=== PATIENT | female | born 2000 ===

== ENCOUNTER 2023-02-17 11:50 | Inpatient (IN) | payer MEDICARE, MEDICAID, SELFPAY ==
[2023-02-17 12:43] VITALS: BMI 37.5
[2023-02-17 12:44] VITALS: BP 142/57; PULSE 73; RESP 16; TEMP 36.2; O2SAT 95
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
[2023-02-17 13:54] LABS: Estimated Average Glucose 100 mg/dL; Hemoglobin A1c % 5.1 % (<6.0)
[2023-02-17 14:09] LABS: Alanine Aminotransferase 42 U/L (0-31); Alkaline Phosphatase 150 U/L (39-117); Anion Gap 13 (12-20); Aspartate Amino Transferase 34 U/L (5-31); Bilirubin Total 0.3 mg/dL (0.0-1.0); Blood Urea Nitrogen 9 mg/dL (9-16); Calcium 9.6 mg/dL (8.4-10.2); Carbon Dioxide 19 mmol/L (22-29); Chloride 113 mmol/L (96-108); Cholesterol 186 mg/dL (<200); Creatinine Clr Calc Pharmacy 113.6; Estimated Glomerular Filt Rate > 60; Glucose Fasting 105 mg/dL (60-99); HDL Cholesterol 39 mg/dL (>40); LDL Cholesterol Calculated 136 mg/dL (<100); Magnesium 2.3 mg/dL (1.6-2.6); Sodium 141 mmol/L (135-145); Triglycerides 57 mg/dL (<150)
[2023-02-17 14:27] LABS: Thyroid Stimulating Hormone 0.65 uIU/mL (0.32-4.0)
[2023-02-17 14:41] LABS: Folate 4.9 ng/mL (> or = 4.0); Vitamin B12 469 pg/mL (200-900)
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
[2023-02-17 18:20] VITALS: BP 109/69; PULSE 81
[2023-02-17] MEDS: Propranolol HCL 20 MG TABLET PO ×2 (18:28→21:42)
[2023-02-17] MEDS: OLANZapine 7.5 MG TABLET 15 MG PO (21:39)
[2023-02-17] MEDS: Primidone 50 MG TABLET 100 MG PO (21:40)
[2023-02-17] MEDS: OXcarbazepine 300 MG TABLET 600 MG PO (21:40)
[2023-02-17] MEDS: Topiramate 100 MG TABLET 200 MG PO (21:41)
[2023-02-17] MEDS: Prazosin HCL 1 MG CAPSULE PO (21:41)
[2023-02-17] MEDS: Melatonin 3 MG TABLET PO (21:42)
[2023-02-17] MEDS: Topiramate 25 MG TABLET 50 MG PO (21:42)
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
[2023-02-18 06:00] VITALS: BP 99/52; PULSE 64; TEMP 36.2; O2SAT 96
[2023-02-18 09:45] VITALS: BP 120/85; PULSE 85; RESP 18; O2SAT 96
[2023-02-18] MEDS: Topiramate 25 MG TABLET 50 MG PO ×2 (10:00→21:15)
[2023-02-18] MEDS: FLUoxetine HCl 20 MG CAPSULE 40 MG PO (10:01)
[2023-02-18] MEDS: Primidone 50 MG TABLET PO (10:01)
[2023-02-18] MEDS: Omeprazole 20 MG CAPSULE.DR PO (10:02)
[2023-02-18] MEDS: Propranolol HCL 20 MG TABLET PO ×3 (10:02→21:17)
[2023-02-18] MEDS: Topiramate 100 MG TABLET 200 MG PO ×2 (10:03→21:16)
[2023-02-18] MEDS: OXcarbazepine 300 MG TABLET 600 MG PO ×2 (10:03→21:18)
[2023-02-18] MEDS: Fluticasone/Vilanterol 100/25 BLST.W.DEV 1 PUFF INHALE (10:05)
[2023-02-18 14:45] VITALS: BP 113/53; PULSE 68; RESP 20; O2SAT 100
--- NOTE | 2023-02-18 17:16 | P.PNPSI_ITS ---
Subjective Subjective Date of Service: 02/18/23 Reason For Visit: BPD, Schizoaffective Disorder Interim History: Patient seen. Was isolated and sleeping most of the shift this morning. She reportde she continued to feel depressed. She has been compliant with medications. Not attending groups. She denies SI/HI/AVH. Monosyllabic answers. Difficult to engage. Review of Systems Constitutional: Reports as per HPI Eyes: Reports as per HPI Reports as per HPI Cardiovascular: Reports as per HPI Respiratory: Reports as per HPI Gastrointestinal: Reports as per HPI Musculoskeletal: Reports as per HPI Skin/Breast: Reports as per HPI Reports as per HPI Psychiatric: Reports as per HPI Endocrine: Reports as per HPI Hematologic/Lymphatic: Reports as per HPI Allergic/Immunologic: Reports as per HPI Mental Status Exam Mental Status Exam Narrative: Pt is alert and oriented; behavior is cooperative, calm and guarded; dressed in casual attire with unkempt hair; mood is described as depressed ; eye contact appropriate; Speech is normal rate, volume and prosody and not pressured; thought process is organized; Thought content is on tx; otherwise pertinent to relevant topics and without any delusional content, paranoid ideations or grandiosity; denies SI/HI. There is no evidence of perceptual disturbance.Patients insight and judgment are poor. Diagnostics Vital Signs (24Hr): Vital Signs - 24 hr 02/17/23 18:20 02/18/23 06:00 02/18/23 09:45 Temperature 97.1 F Pulse Rate 81 64 85 Respiratory Rate 18 Blood Pressure 109/69 99/52 L 120/85 Pulse Oximetry 96 96 Oxygen Delivery Method Room Air Room Air 02/18/23 14:45 Temperature Pulse Rate 68 Respiratory Rate 20 Blood Pressure 113/53 L Pulse Oximetry 100 Oxygen Delivery Method Room Air BMI result Body Mass Index 37.5 Labs 02/17/23 13:21 Labs: Laboratory Results - last 48 hr 02/17/23 13:21 Sodium 141 Potassium 4.0 Chloride 113 H Carbon Dioxide 19 L Anion Gap 13 BUN 9 Creatinine 0.81 Estim Creat Clear Calc 113.6 Estimated GFR > 60 Fasting Glucose 105 H Estimat Average Glucose 100 Hemoglobin A1c % 5.1 Calcium 9.6 Magnesium 2.3 Total Bilirubin 0.3 AST 34 H ALT 42 H Alkaline Phosphatase 150 H Total Protein 8.0 Albumin 4.0 Triglycerides 57 Cholesterol 186 LDL Cholesterol, Calc 136 H HDL Cholesterol 39 L Vitamin B12 469 Folate 4.9 TSH 0.65 Free T4 0.70 L Medications Medications Current Medications Acetaminophen (Acetaminophen 325 Mg Tablet) 650 mg PO Q6H PRN PRN Reason: Headache/Pain Mild Scale (1-3) Al Hydroxide/Mg Hydroxide (Magnesium Hydrox/Alum Hydrox 30 Ml Oral.Susp) 30 ml PO Q6H PRN PRN Reason: Heartburn/Nausea Epinephrine (Epinephrine 1 Mg/Ml Vial) 0.3 mg SUBCUT ONCE PRN PRN Reason: allergic reaction Fluoxetine HCl (Fluoxetine Hcl 20 Mg Capsule) 40 mg PO DAILY [facility] Last Admin: 02/18/23 10:01 Dose: 40 mg Fluticasone/Vilanterol (Fluticasone/Vilanterol 100/25 Blst.W.Dev) 1 puff INHALE RDAILY [facility] Last Admin: 02/18/23 10:05 Dose: 1 puff Hydroxyzine HCl (Hydroxyzine Hcl 25 Mg Tablet) 25 mg PO Q6H PRN PRN Reason: Anxiety Magnesium Hydroxide (Milk Of Magnesia 30 Ml Oral.Susp) 30 ml PO DAILY PRN PRN Reason: Constipation Melatonin (Melatonin 3 Mg Tablet) 3 mg PO BEDTIME [facility] Last Admin: 02/17/23 21:42 Dose: 3 mg Olanzapine (Olanzapine 7.5 Mg Tablet) 15 mg PO BEDTIME [facility] Last Admin: 02/17/23 21:39 Dose: 15 mg Omeprazole (Omeprazole 20 Mg Capsule.Dr) 20 mg PO DAILY [facility] Last Admin: 02/18/23 10:02 Dose: 20 mg Oxcarbazepine (Oxcarbazepine 300 Mg Tablet) 600 mg PO BID [facility] Last Admin: 02/18/23 10:03 Dose: 600 mg Prazosin HCl (Prazosin Hcl 1 Mg Capsule) 1 mg PO BEDTIME [facility]; Protocol Last Admin: 02/17/23 21:41 Dose: 1 mg Primidone (Primidone 50 Mg Tablet) 50 mg PO DAILY [facility] Last Admin: 02/18/23 10:01 Dose: 50 mg Primidone (Primidone 50 Mg Tablet) 100 mg PO BEDTIME [facility] Last Admin: 02/17/23 21:40 Dose: 100 mg Propranolol HCl (Propranolol Hcl 20 Mg Tablet) 20 mg PO TID [facility]; Protocol Last Admin: 02/18/23 14:56 Dose: 20 mg Topiramate (Topiramate 100 Mg Tablet) 200 mg PO BID [facility] Last Admin: 02/18/23 10:03 Dose: 200 mg Topiramate (Topiramate 25 Mg Tablet) 50 mg PO BID [facility] Last Admin: 02/18/23 10:00 Dose: 50 mg Allergies Allergies Allergy/AdvReac Type Severity Reaction Status Date / Time tiagabine Allergy Severe Seizure Verified 02/17/23 15:30 fish Allergy Severe Hives and Uncoded 02/17/23 15:30 Throat closure Assessment & Plan Assessment & Plan (1) Schizoaffective disorder: Status: Acute Code(s): F25.9 - Schizoaffective disorder, unspecified (2) PTSD (post-traumatic stress disorder): Status: Acute Code(s): F43.10 - Post-traumatic stress disorder, unspecified (3) Borderline personality disorder: Status: Acute Code(s): F60.3 - Borderline personality disorder Plan Patient is a 22 year old female with hx of Schizoaffective d/o, PTSD, Borderline personality d/o, who presented to ER with her residential staff for concerns of suicidal ideation d/t increased depressed secondary to the holiday season and missing her mother who had . Plan: CV 15 minute safety checks Obtain collateral Continue home medications:verified with [facility] in [place], [place]. Discharge planning 02/18: Continue current treatment plan. Reason for continued inpatient stay Substantial Risk for: harm to self, inability to function and rapid decompensation Time Spent With Patient Time: Total time managing care of this patient today ____ minutes.
[2023-02-18] MEDS: OLANZapine 7.5 MG TABLET 15 MG PO (21:16)
[2023-02-18] MEDS: Prazosin HCL 1 MG CAPSULE PO (21:17)
[2023-02-18] MEDS: Primidone 50 MG TABLET 100 MG PO (21:17)
[2023-02-18] MEDS: Melatonin 3 MG TABLET PO (21:18)
[2023-02-18 21:19] VITALS: BP 124/56; PULSE 84; RESP 16; TEMP 36.8; O2SAT 95
[2023-02-19 06:00] VITALS: BP 113/51; PULSE 72; RESP 18; TEMP 36.2; O2SAT 97
[2023-02-19 07:45] VITALS: BP 113/51; PULSE 72; RESP 18; TEMP 36.2; O2SAT 97
[2023-02-19] MEDS: Omeprazole 20 MG CAPSULE.DR PO (07:55)
[2023-02-19] MEDS: Fluticasone/Vilanterol 100/25 BLST.W.DEV 1 PUFF INHALE (07:55)
[2023-02-19] MEDS: FLUoxetine HCl 20 MG CAPSULE 40 MG PO (07:55)
[2023-02-19] MEDS: Primidone 50 MG TABLET PO (07:56)
[2023-02-19] MEDS: Topiramate 100 MG TABLET 200 MG PO ×2 (07:56→22:03)
[2023-02-19] MEDS: Topiramate 25 MG TABLET 50 MG PO ×2 (07:56→22:05)
[2023-02-19] MEDS: Propranolol HCL 20 MG TABLET PO ×2 (07:56→22:04)
[2023-02-19] MEDS: OXcarbazepine 300 MG TABLET 600 MG PO ×2 (07:56→22:04)
[2023-02-19 14:39] VITALS: BP 115/56; PULSE 89
--- NOTE | 2023-02-19 18:48 | PC.NURSE ---
Pt asked if she could smoke and became upset when she was told she couldn't smoke while she's at the hospital. RN offered nicotine gum, pt did not respond. Orders placed for nicotine patch to be given tomorrow and PRN nicotine gum.
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
[2023-02-19 20:00] VITALS: BP 120/78; PULSE 87; RESP 18; TEMP 36.3; O2SAT 99
[2023-02-19] MEDS: Nicotine Polacrilex 2 MG GUM BUCCAL (20:15)
[2023-02-19] MEDS: OLANZapine 7.5 MG TABLET 15 MG PO (22:03)
[2023-02-19] MEDS: Primidone 50 MG TABLET 100 MG PO (22:03)
[2023-02-19] MEDS: Melatonin 3 MG TABLET PO (22:04)
[2023-02-19] MEDS: Prazosin HCL 1 MG CAPSULE PO (22:08)
--- NOTE | 2023-02-20 09:46 | P.PNPSI_ITS ---
Subjective Subjective Date of Service: 02/20/23 Reason For Visit: BPD, Schizoaffective Disorder Subjective Notes: Conditional Voluntary Interim History: Reviewed with . Patient reports feeling good today; pt stated, I'm no longer feeling depressed or suicidal. I want to go back to my custodial . Patient could not elaborate further on why she was no longer depressed or suicidal. denies HI/VH/AH. Medication Compliance: Yes Side effects from medications: No Attending Groups: No Review of Systems Constitutional: Reports as per HPI Eyes: Reports as per HPI Reports as per HPI Cardiovascular: Reports as per HPI Respiratory: Reports as per HPI Gastrointestinal: Reports as per HPI Genitourinary: Reports as per HPI Musculoskeletal: Reports as per HPI Skin/Breast: Reports as per HPI Reports as per HPI Psychiatric: Reports as per HPI Endocrine: Reports as per HPI Hematologic/Lymphatic: Reports as per HPI Allergic/Immunologic: Reports as per HPI Mental Status Exam Mental Status Exam Narrative: Pt is alert and oriented; behavior is cooperative, calm, guarded; dressed in casual attire; mood is described as good ; eye contact appropriate; Speech is normal rate, volume and prosody and not pressured; thought process is organized; Thought content is on discharge; otherwise pertinent to relevant topics and without any delusional content, paranoid ideations or grandiosity; denies SI/HI/AH/VH. Diagnostics Vital Signs (24Hr): Vital Signs - 24 hr 02/19/23 14:39 02/19/23 20:00 Temperature 97.3 F Pulse Rate 89 87 Respiratory Rate 18 Blood Pressure 115/56 L 120/78 Pulse Oximetry 99 Oxygen Delivery Method Room Air BMI result Body Mass Index 37.5 Labs 02/17/23 13:21 Medications Medications Current Medications Acetaminophen (Acetaminophen 325 Mg Tablet) 650 mg PO Q6H PRN PRN Reason: Headache/Pain Mild Scale (1-3) Al Hydroxide/Mg Hydroxide (Magnesium Hydrox/Alum Hydrox 30 Ml Oral.Susp) 30 ml PO Q6H PRN PRN Reason: Heartburn/Nausea Epinephrine (Epinephrine 1 Mg/Ml Vial) 0.3 mg SUBCUT ONCE PRN PRN Reason: allergic reaction Fluoxetine HCl (Fluoxetine Hcl 20 Mg Capsule) 40 mg PO DAILY [facility] Last Admin: 02/19/23 07:55 Dose: 40 mg Fluticasone/Vilanterol (Fluticasone/Vilanterol 100/25 Blst.W.Dev) 1 puff INHALE RDAILY [facility] Last Admin: 02/19/23 07:55 Dose: 1 puff Hydroxyzine HCl (Hydroxyzine Hcl 25 Mg Tablet) 25 mg PO Q6H PRN PRN Reason: Anxiety Magnesium Hydroxide (Milk Of Magnesia 30 Ml Oral.Susp) 30 ml PO DAILY PRN PRN Reason: Constipation Melatonin (Melatonin 3 Mg Tablet) 3 mg PO BEDTIME [facility] Last Admin: 02/19/23 22:04 Dose: 3 mg Nicotine (Nicotine 21 Mg Patch.Td24) 21 mg TRANSDERMA DAILY [facility] Nicotine Polacrilex (Nicotine Polacrilex 2 Mg Gum) 2 mg BUCCAL Q2H PRN PRN Reason: Nicotine Cravings Last Admin: 02/19/23 20:15 Dose: 2 mg Olanzapine (Olanzapine 7.5 Mg Tablet) 15 mg PO BEDTIME [facility] Last Admin: 02/19/23 22:03 Dose: 15 mg Omeprazole (Omeprazole 20 Mg Capsule.Dr) 20 mg PO DAILY [facility] Last Admin: 02/19/23 07:55 Dose: 20 mg Oxcarbazepine (Oxcarbazepine 300 Mg Tablet) 600 mg PO BID [facility] Last Admin: 02/19/23 22:04 Dose: 600 mg Prazosin HCl (Prazosin Hcl 1 Mg Capsule) 1 mg PO BEDTIME [facility]; Protocol Last Admin: 02/19/23 22:08 Dose: 1 mg Primidone (Primidone 50 Mg Tablet) 50 mg PO DAILY [facility] Last Admin: 02/19/23 07:56 Dose: 50 mg Primidone (Primidone 50 Mg Tablet) 100 mg PO BEDTIME [facility] Last Admin: 02/19/23 22:03 Dose: 100 mg Propranolol HCl (Propranolol Hcl 20 Mg Tablet) 20 mg PO TID [facility]; Protocol Last Admin: 02/19/23 22:04 Dose: 20 mg Topiramate (Topiramate 100 Mg Tablet) 200 mg PO BID [facility] Last Admin: 02/19/23 22:03 Dose: 200 mg Topiramate (Topiramate 25 Mg Tablet) 50 mg PO BID [facility] Last Admin: 02/19/23 22:05 Dose: 50 mg Allergies Allergies Allergy/AdvReac Type Severity Reaction Status Date / Time tiagabine Allergy Severe Seizure Verified 02/17/23 15:30 fish Allergy Severe Hives and Uncoded 02/17/23 15:30 Throat closure Assessment & Plan Assessment & Plan (1) Schizoaffective disorder: Status: Acute Code(s): F25.9 - Schizoaffective disorder, unspecified (2) PTSD (post-traumatic stress disorder): Status: Acute Code(s): F43.10 - Post-traumatic stress disorder, unspecified (3) Borderline personality disorder: Status: Acute Code(s): F60.3 - Borderline personality disorder Plan Patient is a 22 year old female with hx of Schizoaffective d/o, PTSD, Borderline personality d/o, who presented to ER with her residential staff for concerns of suicidal ideation d/t increased depressed secondary to the holiday season and missing her mother who had . Plan: CV 15 minute safety checks Obtain collateral Continue home medications:verified with [facility] in [place], [place]. Discharge planning 02/18: Continue current treatment plan. 02/19: Continue current management and treatment plan. 02/20: Patient reports feeling good today; pt stated, I'm no longer feeling depressed or suicidal. I want to go back to my custodial . Patient could not elaborate further on why she was no longer depressed or suicidal. denies HI/VH/AH. Continue current tx plan. Patient educated on: diagnosis, medication risk/benefits and therapeutic strategies Informed Consent: understands Reason for continued inpatient stay Substantial Risk for: med/psych decompensation Time Spent With Patient Time: Total time managing care of this patient today _20___ minutes.
[2023-02-20 11:32] VITALS: BP 117/73; PULSE 88; RESP 18; TEMP 36.7; O2SAT 97
[2023-02-20] MEDS: Topiramate 25 MG TABLET 50 MG PO ×2 (11:34→21:34)
[2023-02-20] MEDS: Propranolol HCL 20 MG TABLET PO ×3 (11:34→21:36)
[2023-02-20] MEDS: Fluticasone/Vilanterol 100/25 BLST.W.DEV 1 PUFF INHALE (11:34)
[2023-02-20] MEDS: Topiramate 100 MG TABLET 200 MG PO ×2 (11:34→21:35)
[2023-02-20] MEDS: Omeprazole 20 MG CAPSULE.DR PO (11:34)
[2023-02-20] MEDS: OXcarbazepine 300 MG TABLET 600 MG PO ×2 (11:34→21:36)
[2023-02-20] MEDS: Primidone 50 MG TABLET PO (11:35)
[2023-02-20] MEDS: FLUoxetine HCl 20 MG CAPSULE 40 MG PO (11:35)
[2023-02-20 17:10] VITALS: BP 121/61; PULSE 69
[2023-02-20] MEDS: Nicotine Polacrilex 2 MG GUM BUCCAL (17:14)
[2023-02-20] MEDS: Melatonin 3 MG TABLET PO (21:34)
[2023-02-20] MEDS: OLANZapine 7.5 MG TABLET 15 MG PO (21:34)
[2023-02-20 21:35] VITALS: BP 131/71; PULSE 84; RESP 18; TEMP 36.6; O2SAT 99
[2023-02-20] MEDS: Primidone 50 MG TABLET 100 MG PO (21:36)
[2023-02-20] MEDS: Prazosin HCL 1 MG CAPSULE PO (21:36)
[2023-02-21 09:00] VITALS: BP 127/82; PULSE 80; RESP 16; TEMP 36.7; O2SAT 98
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
[2023-02-21] MEDS: Fluticasone/Vilanterol 100/25 BLST.W.DEV 1 PUFF INHALE (09:44)
[2023-02-21] MEDS: Topiramate 100 MG TABLET 200 MG PO ×2 (09:45→21:04)
[2023-02-21] MEDS: Topiramate 25 MG TABLET 50 MG PO ×2 (09:45→21:03)
[2023-02-21] MEDS: FLUoxetine HCl 20 MG CAPSULE 40 MG PO (09:45)
[2023-02-21] MEDS: OXcarbazepine 300 MG TABLET 600 MG PO ×2 (09:45→21:03)
[2023-02-21] MEDS: Omeprazole 20 MG CAPSULE.DR PO (09:45)
[2023-02-21] MEDS: Propranolol HCL 20 MG TABLET PO ×3 (09:45→21:38)
[2023-02-21] MEDS: Primidone 50 MG TABLET PO (09:46)
[2023-02-21] MEDS: Nicotine 21 MG PATCH.TD24 TRANSDERMA (09:46)
[2023-02-21] MEDS: Nicotine Polacrilex 2 MG GUM BUCCAL (14:49)
[2023-02-21 20:10] VITALS: BP 120/80; PULSE 86; RESP 18; TEMP 36.5; O2SAT 99
[2023-02-21] MEDS: Prazosin HCL 1 MG CAPSULE PO (21:01)
[2023-02-21] MEDS: OLANZapine 7.5 MG TABLET 15 MG PO (21:02)
[2023-02-21] MEDS: Primidone 50 MG TABLET 100 MG PO (21:02)
[2023-02-21] MEDS: Melatonin 3 MG TABLET PO (21:03)
[2023-02-22 08:19] VITALS: BP 112/59; PULSE 85; RESP 18; TEMP 36.4; O2SAT 94
[2023-02-22] MEDS: Nicotine 21 MG PATCH.TD24 TRANSDERMA (08:33)
[2023-02-22] MEDS: Fluticasone/Vilanterol 100/25 BLST.W.DEV 1 PUFF INHALE (08:34)
[2023-02-22] MEDS: Topiramate 25 MG TABLET 50 MG PO ×2 (08:35→20:21)
[2023-02-22] MEDS: Topiramate 100 MG TABLET 200 MG PO ×2 (08:35→20:21)
[2023-02-22] MEDS: Omeprazole 20 MG CAPSULE.DR PO (08:35)
[2023-02-22] MEDS: FLUoxetine HCl 20 MG CAPSULE 40 MG PO (08:35)
[2023-02-22] MEDS: Propranolol HCL 20 MG TABLET PO ×3 (08:36→20:21)
[2023-02-22] MEDS: OXcarbazepine 300 MG TABLET 600 MG PO ×2 (08:36→20:21)
[2023-02-22] MEDS: Primidone 50 MG TABLET PO (08:36)
--- NOTE | 2023-02-22 11:26 | P.DS_ITS ---
DS: Providers Provider Date of Service: 02/22/23 Date of admission: 02/17/23 11:50 Primary care physician: LIN Perkins Consults: 02/17/23 13:42 Consult to Hospitalist Routine Comment: Consulting Provider: Hospitalist Reason For Exam: outside admit from [facility] DS: Diagnosis Discharge Diagnosis (1) Schizoaffective disorder: Status: Acute (2) PTSD (post-traumatic stress disorder): Status: Acute (3) Borderline personality disorder: Status: Acute DS: Medications Discharge Medications Home Medications: Home Medications Medication Instructions Recorded Confirmed Vitamin D2 1.25 mg PO QWEEK 02/17/23 02/17/23 fluoxetine 40 mg capsule (Prozac) 40 mg PO DAILY 02/17/23 02/17/23 fluticasone 250 mcg-salmeterol 50 1 inh inhalation BID 02/17/23 02/17/23 mcg/dose blistr powdr for inhalation (Advair Diskus) melatonin 3 mg tablet 3 mg PO BEDTIME 02/17/23 02/17/23 olanzapine 15 mg tablet 15 mg PO BEDTIME 02/17/23 02/17/23 omeprazole 20 mg capsule,delayed 20 mg PO DAILY 02/17/23 02/17/23 release oxcarbazepine 600 mg tablet 600 mg PO BID 02/17/23 02/17/23 prazosin 1 mg capsule 1 mg PO BEDTIME 02/17/23 02/17/23 primidone 50 mg tablet 50 mg PO DAILY 02/17/23 02/17/23 primidone 50 mg tablet 100 mg PO BEDTIME 02/17/23 02/17/23 propranolol 20 mg tablet 20 mg PO TID 02/17/23 02/17/23 topiramate 200 mg tablet 200 mg PO BID 02/17/23 02/17/23 topiramate 50 mg tablet 50 mg PO BID 02/17/23 02/17/23 Mental Status Exam Mental Status Exam Narrative: Pt is alert and oriented; behavior is cooperative, calm; dressed in casual attire; mood is described as OK; eye contact appropriate; Speech is normal rate, volume and prosody and not pressured; thought process is organized; Thought content is on discharge; otherwise pertinent to relevant topics and without any delusional content, paranoid ideations or grandiosity; denies SI/HI/AH/VH. Data Data Completed and Pending Completed studies during hospitalization [Text1]: 02/17/23 13:21 Sodium 141 Potassium 4.0 Chloride 113 H Carbon Dioxide 19 L Anion Gap 13 BUN 9 Creatinine 0.81 Estim Creat Clear Calc 113.6 Estimated GFR > 60 Fasting Glucose 105 H Estimat Average Glucose 100 Hemoglobin A1c % 5.1 Calcium 9.6 Magnesium 2.3 Total Bilirubin 0.3 AST 34 H ALT 42 H Alkaline Phosphatase 150 H Total Protein 8.0 Albumin 4.0 Triglycerides 57 Cholesterol 186 LDL Cholesterol, Calc 136 H HDL Cholesterol 39 L Vitamin B12 469 Folate 4.9 TSH 0.65 Free T4 0.70 L DS: Summary Time Spent with Patient Time attestation: Total time managing care of this patient today ____ minutes. Discharge Plan Discharge Anticipated Discharge Date/Time: 02/23/23 11:00 Patient Disposition: Home, Self-Care Discharge Diagnosis: Schizoaffective Disorder PTSD, Chronic Referrals: Светлана Galarza [employer]GER [Primary Care Provider] - 1 Week Discharge Medications: Continued fluoxetine [Prozac] 40 mg Capsule 40 mg PO DAILY prazosin 1 mg Capsule 1 mg PO BEDTIME olanzapine 15 mg Tablet 15 mg PO BEDTIME propranolol 20 mg Tablet 20 mg PO TID primidone 50 mg Tablet 100 mg PO BEDTIME omeprazole 20 mg Capsule,Delayed Release(Dr/Ec) 20 mg PO DAILY Vitamin D2 capsule 1.25 mg PO QWEEK primidone 50 mg Tablet 50 mg PO DAILY melatonin 3 mg Tablet 3 mg PO BEDTIME oxcarbazepine 600 mg Tablet 600 mg PO BID topiramate 200 mg Tablet 200 mg PO BID topiramate 50 mg Tablet 50 mg PO BID fluticasone propion-salmeterol [Advair Diskus] 250-50 mcg/dose Blister With Device 1 inh INHALATION BID Discharge Orders: Discharge Order (Routine); Ordered 02/23/23 Ordered By: Juvenal Zelaya Diet: Advance to usual diet Activity on Discharge: As tolerated Stand Alone Forms: Patient Portal Discharge page Care Plan Goals: remain safe and stable in the outpatient treatment setting Health Concerns: none Plan of Treatment: take medications as prescribed, attend appointments as scheduled Assessment: not at imminent risk of harm to self or others
[2023-02-22 14:05] VITALS: BP 130/71; PULSE 88
--- NOTE | 2023-02-22 15:43 | HO.PSYCHPN ---
Subjective Subjective Date of Service: 02/22/23 Reason For Visit: BPD, Schizoaffective Disorder Interim History: calm, cooperative. willing to discharge tomorrow or monday. no questions or complaints. per staff, anx 4, dep 0. bright affect. attending groups. social. Mental Status Exam Mental Status Exam Narrative: Pt is alert and oriented; behavior is cooperative, calm; dressed in casual attire; mood is described as OK; eye contact appropriate; Speech is normal rate, volume and prosody and not pressured; thought process is organized; Thought content is on discharge; otherwise pertinent to relevant topics and without any delusional content, paranoid ideations or grandiosity; denies SI/HI/AH/VH. Diagnostics Vital Signs (24Hr): Vital Signs - 24 hr 02/21/23 20:10 02/22/23 08:19 02/22/23 14:05 Temperature 97.7 F 97.6 F Pulse Rate 86 85 88 Respiratory Rate 18 18 Blood Pressure 120/80 112/59 L 130/71 Pulse Oximetry 99 94 Oxygen Delivery Method Room Air Room Air BMI result Body Mass Index 37.5 Labs 02/17/23 13:21 Medications Medications Current Medications Acetaminophen (Acetaminophen 325 Mg Tablet) 650 mg PO Q6H PRN PRN Reason: Headache/Pain Mild Scale (1-3) Al Hydroxide/Mg Hydroxide (Magnesium Hydrox/Alum Hydrox 30 Ml Oral.Susp) 30 ml PO Q6H PRN PRN Reason: Heartburn/Nausea Epinephrine (Epinephrine 1 Mg/Ml Vial) 0.3 mg SUBCUT ONCE PRN PRN Reason: allergic reaction Fluoxetine HCl (Fluoxetine Hcl 20 Mg Capsule) 40 mg PO DAILY [facility] Last Admin: 02/22/23 08:35 Dose: 40 mg Fluticasone/Vilanterol (Fluticasone/Vilanterol 100/25 Blst.W.Dev) 1 puff INHALE RDAILY [facility] Last Admin: 02/22/23 08:34 Dose: 1 puff Hydroxyzine HCl (Hydroxyzine Hcl 25 Mg Tablet) 25 mg PO Q6H PRN PRN Reason: Anxiety Magnesium Hydroxide (Milk Of Magnesia 30 Ml Oral.Susp) 30 ml PO DAILY PRN PRN Reason: Constipation Melatonin (Melatonin 3 Mg Tablet) 3 mg PO BEDTIME [facility] Last Admin: 02/21/23 21:03 Dose: 3 mg Nicotine (Nicotine 21 Mg Patch.Td24) 21 mg TRANSDERMA DAILY [facility] Last Admin: 02/22/23 08:33 Dose: 21 mg Nicotine Polacrilex (Nicotine Polacrilex 2 Mg Gum) 2 mg BUCCAL Q2H PRN PRN Reason: Nicotine Cravings Last Admin: 02/21/23 14:49 Dose: 2 mg Olanzapine (Olanzapine 7.5 Mg Tablet) 15 mg PO BEDTIME [facility] Last Admin: 02/21/23 21:02 Dose: 15 mg Omeprazole (Omeprazole 20 Mg Capsule.Dr) 20 mg PO DAILY [facility] Last Admin: 02/22/23 08:35 Dose: 20 mg Oxcarbazepine (Oxcarbazepine 300 Mg Tablet) 600 mg PO BID [facility] Last Admin: 02/22/23 08:36 Dose: 600 mg Prazosin HCl (Prazosin Hcl 1 Mg Capsule) 1 mg PO BEDTIME [facility]; Protocol Last Admin: 02/21/23 21:01 Dose: 1 mg Primidone (Primidone 50 Mg Tablet) 50 mg PO DAILY [facility] Last Admin: 02/22/23 08:36 Dose: 50 mg Primidone (Primidone 50 Mg Tablet) 100 mg PO BEDTIME [facility] Last Admin: 02/21/23 21:02 Dose: 100 mg Propranolol HCl (Propranolol Hcl 20 Mg Tablet) 20 mg PO TID [facility]; Protocol Last Admin: 02/22/23 14:07 Dose: 20 mg Topiramate (Topiramate 100 Mg Tablet) 200 mg PO BID [facility] Last Admin: 02/22/23 08:35 Dose: 200 mg Topiramate (Topiramate 25 Mg Tablet) 50 mg PO BID [facility] Last Admin: 02/22/23 08:35 Dose: 50 mg Allergies Allergies Allergy/AdvReac Type Severity Reaction Status Date / Time tiagabine Allergy Severe Seizure Verified 02/17/23 15:30 fish Allergy Severe Hives and Uncoded 02/17/23 15:30 Throat closure Assessment & Plan Assessment & Plan (1) Schizoaffective disorder: Status: Acute Code(s): F25.9 - Schizoaffective disorder, unspecified (2) PTSD (post-traumatic stress disorder): Status: Acute Code(s): F43.10 - Post-traumatic stress disorder, unspecified (3) Borderline personality disorder: Status: Acute Code(s): F60.3 - Borderline personality disorder Plan Patient is a 22 year old female with hx of Schizoaffective d/o, PTSD, Borderline personality d/o, who presented to ER with her residential staff for concerns of suicidal ideation d/t increased depressed secondary to the holiday season and missing her mother who had . Plan: CV 15 minute safety checks Obtain collateral Continue home medications:verified with [facility] in [place], [place]. Discharge monday no medication changes made during hospitalization. Reason for continued inpatient stay Substantial Risk for: inability to function and rapid decompensation Time Spent With Patient Time: Total time managing care of this patient today _25___ minutes.
[2023-02-22 20:00] VITALS: BP 124/60; PULSE 80; RESP 18; TEMP 36.6; O2SAT 99
[2023-02-22] MEDS: Melatonin 3 MG TABLET PO (20:21)
[2023-02-22] MEDS: Prazosin HCL 1 MG CAPSULE PO (20:21)
[2023-02-22] MEDS: OLANZapine 7.5 MG TABLET 15 MG PO (20:21)
[2023-02-22] MEDS: Primidone 50 MG TABLET 100 MG PO (20:21)
--- NOTE | 2023-02-23 11:05 | P.PNPSI_ITS ---
Subjective Subjective Date of Service: 02/23/23 Reason For Visit: BPD, Schizoaffective Disorder Interim History: stable, no complaints. safe. ready for discharge. Mental Status Exam Mental Status Exam Narrative: Pt is alert and oriented; behavior is cooperative, calm; dressed in casual attire; mood is described as OK; eye contact appropriate; Speech is normal rate, volume and prosody and not pressured; thought process is organized; Thought content is on discharge; otherwise pertinent to relevant topics and without any delusional content, paranoid ideations or grandiosity; denies SI/HI/AH/VH. Diagnostics Vital Signs (24Hr): Vital Signs - 24 hr 02/23/23 11:44 02/23/23 16:07 02/23/23 20:15 Temperature 98.3 F 97.9 F Pulse Rate 90 77 82 Respiratory Rate 18 18 16 Blood Pressure 129/88 137/73 128/67 Pulse Oximetry 97 98 99 Oxygen Delivery Method Room Air Room Air Room Air 02/24/23 06:00 Temperature 96.8 F Pulse Rate 76 Respiratory Rate 16 Blood Pressure 122/56 L Pulse Oximetry 99 Oxygen Delivery Method Room Air BMI result Body Mass Index 37.5 Labs 02/17/23 13:21 Medications Medications Current Medications Acetaminophen (Acetaminophen 325 Mg Tablet) 650 mg PO Q6H PRN PRN Reason: Headache/Pain Mild Scale (1-3) Al Hydroxide/Mg Hydroxide (Magnesium Hydrox/Alum Hydrox 30 Ml Oral.Susp) 30 ml PO Q6H PRN PRN Reason: Heartburn/Nausea Epinephrine (Epinephrine 1 Mg/Ml Vial) 0.3 mg SUBCUT ONCE PRN PRN Reason: allergic reaction Fluoxetine HCl (Fluoxetine Hcl 20 Mg Capsule) 40 mg PO DAILY [facility] Last Admin: 02/24/23 08:20 Dose: 40 mg Fluticasone/Vilanterol (Fluticasone/Vilanterol 100/25 Blst.W.Dev) 1 puff INHALE RDAILY [facility] Last Admin: 02/24/23 10:53 Dose: 1 puff Hydroxyzine HCl (Hydroxyzine Hcl 25 Mg Tablet) 25 mg PO Q6H PRN PRN Reason: Anxiety Magnesium Hydroxide (Milk Of Magnesia 30 Ml Oral.Susp) 30 ml PO DAILY PRN PRN Reason: Constipation Melatonin (Melatonin 3 Mg Tablet) 3 mg PO BEDTIME [facility] Last Admin: 02/23/23 21:45 Dose: 3 mg Nicotine (Nicotine 21 Mg Patch.Td24) 21 mg TRANSDERMA DAILY [facility] Last Admin: 02/24/23 08:24 Dose: Not Given Nicotine Polacrilex (Nicotine Polacrilex 2 Mg Gum) 2 mg BUCCAL Q2H PRN PRN Reason: Nicotine Cravings Last Admin: 02/21/23 14:49 Dose: 2 mg Olanzapine (Olanzapine 7.5 Mg Tablet) 15 mg PO BEDTIME [facility] Last Admin: 02/23/23 21:43 Dose: 15 mg Omeprazole (Omeprazole 20 Mg Capsule.Dr) 20 mg PO DAILY [facility] Last Admin: 02/24/23 08:20 Dose: 20 mg Oxcarbazepine (Oxcarbazepine 300 Mg Tablet) 600 mg PO BID [facility] Last Admin: 02/24/23 08:20 Dose: 600 mg Prazosin HCl (Prazosin Hcl 1 Mg Capsule) 1 mg PO BEDTIME [facility]; Protocol Last Admin: 02/23/23 21:44 Dose: 1 mg Primidone (Primidone 50 Mg Tablet) 50 mg PO DAILY [facility] Last Admin: 02/24/23 08:20 Dose: 50 mg Primidone (Primidone 50 Mg Tablet) 100 mg PO BEDTIME [facility] Last Admin: 02/23/23 21:44 Dose: 100 mg Propranolol HCl (Propranolol Hcl 20 Mg Tablet) 20 mg PO TID [facility]; Protocol Last Admin: 02/24/23 08:20 Dose: 20 mg Topiramate (Topiramate 100 Mg Tablet) 200 mg PO BID [facility] Last Admin: 02/24/23 08:20 Dose: 200 mg Topiramate (Topiramate 25 Mg Tablet) 50 mg PO BID [facility] Last Admin: 02/24/23 08:20 Dose: 50 mg Allergies Allergies Allergy/AdvReac Type Severity Reaction Status Date / Time tiagabine Allergy Severe Seizure Verified 02/17/23 15:30 fish Allergy Severe Hives and Uncoded 02/17/23 15:30 Throat closure Assessment & Plan Assessment & Plan (1) Schizoaffective disorder: Status: Acute Code(s): F25.9 - Schizoaffective disorder, unspecified (2) PTSD (post-traumatic stress disorder): Status: Acute Code(s): F43.10 - Post-traumatic stress disorder, unspecified (3) Borderline personality disorder: Status: Acute Code(s): F60.3 - Borderline personality disorder Plan Patient is a 22 year old female with hx of Schizoaffective d/o, PTSD, Borderline personality d/o, who presented to ER with her residential staff for concerns of suicidal ideation d/t increased depressed secondary to the holiday season and missing her mother who had . Plan: CV 15 minute safety checks Obtain collateral Continue home medications:verified with [facility] in [place], [place]. Discharge monday no medication changes made during hospitalization. Reason for continued inpatient stay Substantial Risk for: inability to function Time Spent With Patient Time: Total time managing care of this patient today ____ minutes.
[2023-02-23 11:44] VITALS: BP 129/88; PULSE 90; RESP 18; TEMP 36.8; O2SAT 97
[2023-02-23] MEDS: OXcarbazepine 300 MG TABLET 600 MG PO ×2 (11:46→21:43)
[2023-02-23] MEDS: Topiramate 100 MG TABLET 200 MG PO ×2 (11:46→21:42)
[2023-02-23] MEDS: Nicotine 21 MG PATCH.TD24 TRANSDERMA (11:46)
[2023-02-23] MEDS: FLUoxetine HCl 20 MG CAPSULE 40 MG PO (11:47)
[2023-02-23] MEDS: Primidone 50 MG TABLET PO (11:47)
[2023-02-23] MEDS: Omeprazole 20 MG CAPSULE.DR PO (11:47)
[2023-02-23] MEDS: Propranolol HCL 20 MG TABLET PO ×3 (11:47→21:45)
[2023-02-23] MEDS: Topiramate 25 MG TABLET 50 MG PO ×2 (11:47→21:44)
--- NOTE | 2023-02-23 11:59 | P.DS_ITS ---
DS: Providers Provider Date of Service: 02/23/23 Date of admission: 02/17/23 11:50 Primary care physician: LIN Perkins Consults: 02/17/23 13:42 Consult to Hospitalist Routine Comment: Consulting Provider: Hospitalist Reason For Exam: outside admit from [facility] DS: Diagnosis Discharge Diagnosis (1) Schizoaffective disorder: Status: Acute (2) PTSD (post-traumatic stress disorder): Status: Acute (3) Borderline personality disorder: Status: Acute DS: Medications Discharge Medications Home Medications: Home Medications Medication Instructions Recorded Confirmed Vitamin D2 1.25 mg PO QWEEK 02/17/23 02/17/23 fluoxetine 40 mg capsule (Prozac) 40 mg PO DAILY 02/17/23 02/17/23 fluticasone 250 mcg-salmeterol 50 1 inh inhalation BID 02/17/23 02/17/23 mcg/dose blistr powdr for inhalation (Advair Diskus) melatonin 3 mg tablet 3 mg PO BEDTIME 02/17/23 02/17/23 olanzapine 15 mg tablet 15 mg PO BEDTIME 02/17/23 02/17/23 omeprazole 20 mg capsule,delayed 20 mg PO DAILY 02/17/23 02/17/23 release oxcarbazepine 600 mg tablet 600 mg PO BID 02/17/23 02/17/23 prazosin 1 mg capsule 1 mg PO BEDTIME 02/17/23 02/17/23 primidone 50 mg tablet 50 mg PO DAILY 02/17/23 02/17/23 primidone 50 mg tablet 100 mg PO BEDTIME 02/17/23 02/17/23 propranolol 20 mg tablet 20 mg PO TID 02/17/23 02/17/23 topiramate 200 mg tablet 200 mg PO BID 02/17/23 02/17/23 topiramate 50 mg tablet 50 mg PO BID 02/17/23 02/17/23 Mental Status Exam Mental Status Exam Narrative: Pt is alert and oriented; behavior is cooperative, calm; dressed in casual attire; mood is described as i don't really have a mood; eye contact appropriate; Speech is normal rate, volume; thought process is organized; Thought content is on discharge; otherwise pertinent to relevant topics and without any delusional content, paranoid ideations or grandiosity; denies SI/HI/AH/VH. Data Data Completed and Pending Completed studies during hospitalization [Text1]: 02/17/23 13:21 Sodium 141 Potassium 4.0 Chloride 113 H Carbon Dioxide 19 L Anion Gap 13 BUN 9 Creatinine 0.81 Estim Creat Clear Calc 113.6 Estimated GFR > 60 Fasting Glucose 105 H Estimat Average Glucose 100 Hemoglobin A1c % 5.1 Calcium 9.6 Magnesium 2.3 Total Bilirubin 0.3 AST 34 H ALT 42 H Alkaline Phosphatase 150 H Total Protein 8.0 Albumin 4.0 Triglycerides 57 Cholesterol 186 LDL Cholesterol, Calc 136 H HDL Cholesterol 39 L Vitamin B12 469 Folate 4.9 TSH 0.65 Free T4 0.70 L DS: Summary Time Spent with Patient Time attestation: Total time managing care of this patient today ____ minutes. Discharge Plan Discharge Anticipated Discharge Date/Time: 02/24/23 12:00 Patient Disposition: Home, Self-Care Discharge Diagnosis: Schizoaffective Disorder PTSD, Chronic Referrals: Светлана Galarza FNP [Primary Care Provider] - 03/09/23 12:00 pm (PCP Dr. Светлана Galarza - [address] [place] [address] [phone]) Discharge Medications: Continued fluoxetine [Prozac] 40 mg Capsule 40 mg PO DAILY prazosin 1 mg Capsule 1 mg PO BEDTIME olanzapine 15 mg Tablet 15 mg PO BEDTIME propranolol 20 mg Tablet 20 mg PO TID primidone 50 mg Tablet 100 mg PO BEDTIME omeprazole 20 mg Capsule,Delayed Release(Dr/Ec) 20 mg PO DAILY Vitamin D2 capsule 1.25 mg PO QWEEK primidone 50 mg Tablet 50 mg PO DAILY melatonin 3 mg Tablet 3 mg PO BEDTIME oxcarbazepine 600 mg Tablet 600 mg PO BID topiramate 200 mg Tablet 200 mg PO BID topiramate 50 mg Tablet 50 mg PO BID fluticasone propion-salmeterol [Advair Diskus] 250-50 mcg/dose Blister With Device 1 inh INHALATION BID Discharge Orders: Discharge Order (Routine); Ordered 02/24/23 Ordered By: Juvenal Zelaya Diet: Advance to usual diet Activity on Discharge: As tolerated Stand Alone Forms: Patient Portal Discharge page, Community Support Care Plan Goals: remain safe and stable in the outpatient treatment setting Health Concerns: none Plan of Treatment: take medications as prescribed, attend appointments as scheduled Assessment: not at imminent risk of harm to self or others
[2023-02-23 16:07] VITALS: BP 137/73; PULSE 77; RESP 18; O2SAT 98
[2023-02-23 20:15] VITALS: BP 128/67; PULSE 82; RESP 16; TEMP 36.6; O2SAT 99
[2023-02-23] MEDS: OLANZapine 7.5 MG TABLET 15 MG PO (21:43)
[2023-02-23] MEDS: Primidone 50 MG TABLET 100 MG PO (21:44)
[2023-02-23] MEDS: Prazosin HCL 1 MG CAPSULE PO (21:44)
[2023-02-23] MEDS: Melatonin 3 MG TABLET PO (21:45)
[2023-02-24 06:00] VITALS: BP 122/56; PULSE 76; RESP 16; TEMP 36; O2SAT 99
[2023-02-24] MEDS: Topiramate 100 MG TABLET 200 MG PO (08:20)
[2023-02-24] MEDS: Primidone 50 MG TABLET PO (08:20)
[2023-02-24] MEDS: Topiramate 25 MG TABLET 50 MG PO (08:20)
[2023-02-24] MEDS: OXcarbazepine 300 MG TABLET 600 MG PO (08:20)
[2023-02-24] MEDS: Omeprazole 20 MG CAPSULE.DR PO (08:20)
[2023-02-24] MEDS: Propranolol HCL 20 MG TABLET PO (08:20)
[2023-02-24] MEDS: FLUoxetine HCl 20 MG CAPSULE 40 MG PO (08:20)
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
[2023-02-24] MEDS: Fluticasone/Vilanterol 100/25 BLST.W.DEV 1 PUFF INHALE (10:53)
== END 2023-02-24 13:12 | disposition home or self-care (01) | DRG 885 ==
PROVIDERS: Clinical Nurse Specialist Psychiatric/Mental Health, Adult; Admitting Provider Psychiatry & Neurology Psychiatry; PCP Registered Nurse; Responsible Provider Registered Nurse; Visit Provider Psychiatry & Neurology Psychiatry
DX: F25.9 Schizoaffective disorder, unspecified (principal); R45.851 Suicidal ideations; K21.9 Gastro-esophageal reflux disease without esophagitis; J45.30 Mild persistent asthma, uncomplicated; F43.12 Post-traumatic stress disorder, chronic; G40.909 Epilepsy, unspecified, not intractable, without status epilepticus; F60.3 Borderline personality disorder; Z91.51 Personal history of suicidal behavior; Z91.52 Personal history of nonsuicidal self-harm; Z79.51 Long term (current) use of inhaled steroids; Z79.899 Other long term (current) drug therapy
CPT/HCPCS: 36415; 80053; 80061; 82607; 82746; 83036; 83735; 84439; 84443

== ENCOUNTER → 2023-02-17 11:50 | Outpatient (BNV) | payer MEDICARE, MEDICAID, SELFPAY | PROVIDERS: Admitting Provider Psychiatry & Neurology Psychiatry; PCP Registered Nurse; Responsible Provider Registered Nurse; Visit Provider Student in an Organized Health Care Education/Training Program | DX: Z02.2 Encounter for examination for admission to residential institution (principal) | CPT/HCPCS: 99429 ==

== ENCOUNTER → 2023-02-17 11:50 | Outpatient (BNV) | payer MEDICARE, MEDICAID, SELFPAY | PROVIDERS: Admitting Provider Psychiatry & Neurology Psychiatry; PCP Registered Nurse; Responsible Provider Registered Nurse; Visit Provider Psychiatry & Neurology Psychiatry | DX: F60.3 Borderline personality disorder (principal); F25.0 Schizoaffective disorder, bipolar type; F43.11 Post-traumatic stress disorder, acute | CPT/HCPCS: 90792; 99231; 99238 ==